=== PATIENT | male | born 1950 | race Caucasian/White ===

== ENCOUNTER 2018-12-25 19:26 | Emergency (ER) | payer MEDICARE, BC ==
[2018-12-25] MEDS: Bacitracin Oint 1 GM U/D Packet TOP ONE (20:05)
--- NOTE | 2019-01-11 11:38 | EDM.PDOC ---
ED HPI GENERAL MEDICAL PROBLEM - General Chief Complaint: General Stated Complaint: FINGER INJURY Time Seen by Provider: 12/25/18 19:55 Source of Information: Reports: Patient History Limitations: Reports: No Limitations - History of Present Illness INITIAL COMMENTS - FREE TEXT/NARRATIVE: This is a 68yo M here for a left 4th digit injury. He felt that he took of the tip of the finger. He has placed a wrap and placed pressure on it prior to coming to the ER. Onset: Sudden Duration: Hour(s): Location: Reports: Upper Extremity, Left - Related Data Allergies Allergy/AdvReac Type Severity Reaction Status Date / Time acetaminophen [From Percocet] Allergy Rash Verified 12/25/18 21:42 oxycodone [From Percocet] Allergy Rash Verified 12/25/18 21:42 Home Meds: Home Meds Acetaminophen [Tylenol Arthritis Pain] 650 mg PO Q8H 12/25/18 [History] Allopurinol [Zyloprim] 300 mg PO DAILY 12/25/18 [History] Aspirin [Halfprin] 81 mg PO DAILY 12/25/18 [History] Dutasteride [Avodart] 0.5 mg PO DAILY 12/25/18 [History] Gabapentin [Neurontin] 600 mg PO QID 12/25/18 [History] Metoprolol Tartrate [Lopressor] 25 mg PO BID 12/25/18 [History] Multivitamin with Minerals [Multiple Vitamin] 1 tab PO DAILY 12/25/18 [History] Nitroglycerin [Nitrostat] 0.4 mg SL ASDIRECTED 12/25/18 [History] Tamsulosin [Tamsulosin 24 Hr] 0.4 mg PO DAILY 12/25/18 [History] Past Medical History HEENT History: Reports: Impaired Vision Cardiovascular History: Reports: CAD, High Cholesterol, Hypertension, DE, Stents Gastrointestinal History: Reports: GERD Genitourinary History: Reports: Prostate Disorder Musculoskeletal History: Reports: Arthritis Neurological History: Reports: Other (See Below) Other Neuro History: Spinal stenosis Social & Family History - Family History Family Medical History: Noncontributory - Tobacco Use Smoking Status *Q: Never Smoker Second Hand Smoke Exposure: No - Caffeine Use Caffeine Use: Reports: Coffee - Recreational Drug Use Recreational Drug Use: No ED ROS GENERAL - Review of Systems Review Of Systems: ROS reveals no pertinent complaints other than HPI. ED EXAM, SKIN/RASH Exam: See Below Exam Limited By: No Limitations General Appearance: Alert, WD/WN, No Apparent Distress Head: Atraumatic Neck: Normal Inspection Respiratory/Chest: No Respiratory Distress Cardiovascular: Normal Peripheral Pulses Skin: Wound/Incision (1.5cm wound of the distal tip of the left 4th digit, hemostasis acheived by patient) Course - Vital Signs Last Recorded V/S: Last Vital Signs Temp 36.3 C 12/25/18 19:35 Pulse 87 12/25/18 19:35 Resp 16 12/25/18 19:35 BP 135/94 H 12/25/18 19:35 Pulse Ox 97 12/25/18 19:35 - Orders/Labs/Meds Meds: Medications Discontinued Medications Generic Name Dose Route Start Last Admin Trade Name Sue PRN Reason Stop Dose Admin Bacitracin 1 dose 12/25/18 20:00 12/25/18 20:05 Bacitracin Oint 1 Gm TOP 12/25/18 20:01 1 dose ONETIME ONE Administration Departure - Departure Time of Disposition: 20:15 Disposition: Home, Self-Care 01 Condition: Good Clinical Impression: Finger injury Qualifiers: Encounter type: initial encounter Laterality: left Qualified Code(s): S69.92XA - Unspecified injury of left wrist, hand and finger(s), initial encounter - Discharge Information Instructions: Wound Infection, [id number] Referrals: PCP,None [Primary Care Provider] - Forms: ED Department Discharge Additional Instructions: Be sure to monitor affected area for signs and symptoms of infection present, including increased redness, increased swelling, increased pain or tenderness to touch, foul drainage and/or fever present. Should any of these symptoms occur, return to be seen right away for further evaluation. Leave applied dressing in place for next 24 hours, then dressing changes daily for next 3 days as follows: cleanse affected area with soap and water, dab dry, apply thin strip of antibiotic ointment, cover with non-adherent dressing and wrap with gauze, after 3 days, may leave open to air. Follow up with regular provider as needed. Call with any questions. - Problem List & Annotations (1) Finger injury SNOMED Code(s): 20533795 Code(s): S69.90XA - UNSP INJURY OF UNSP WRIST, HAND AND FINGER(S), INIT ENCNTR Status: Acute Qualifiers: Encounter type: initial encounter Laterality: left Qualified Code(s): S69.92XA - Unspecified injury of left wrist, hand and finger(s), initial encounter - Problem List Review Problem List Initiated/Reviewed/Updated: Yes - Assessment/Plan Plan: Counseled on supportive and conservative management. Discussed necrosis of the tip and other concerns including infection and for close monitoring, care and follow up if any concerns. Rtc or ER as needed.
== END 2018-12-25 20:07 | disposition home or self-care (01) ==
LOC: LB.ED 19:26
DX: S69.92XA Unspecified injury of left wrist, hand and finger(s), initial encounter (principal); I10 Essential (primary) hypertension; I25.2 Old myocardial infarction; E78.00 Pure hypercholesterolemia, unspecified; Z88.6 Allergy status to analgesic agent; Z79.899 Other long term (current) drug therapy; Z79.82 Long term (current) use of aspirin; W22.8XXA Striking against or struck by other objects, initial encounter
CPT/HCPCS: 99282